=== PATIENT | male | born 1990 | race Caucasian/White ===

== ENCOUNTER 2017-06-16 17:18 | Emergency (ER) | payer SELFPAY ==
[2017-06-16 17:50] LABS: #Basophils 0.1 thou/uL (0.0-0.2); #Eosinphils 0.1 thou/uL (0.0-0.7); #Lymphocytes 2.2 thou/uL (1.20-3.40); #Monocytes 0.5 thou/uL (0.11-0.59); #Neutrophils 5.6 thou/uL (1.40-6.50); %Basophils 0.7 % (0.0-1.0); %Eosinophils 1.3 % (0.0-10.0); %Lymphocytes 25.8 % (21.0-51.0); %Neutrophils 66.2 % (42.0-75.0); Hemoglobin 16.7 g/dL (14.0-18.0); Mean Corpuscular Hemoglobin 33.9 pg (27.0-31.0); Mean Platelet Volume 7.9 fL (7.4-10.4); Platelet Count 204 thou/uL (130-400); Red Blood Cell (RBC) Count 4.93 mill/uL (4.70-6.10); White Blood Cell (WBC) Count 8.5 thou/uL (4.8-10.8)
[2017-06-16 18:14] LABS: ALT (SGPT) 21 U/L (8-55); AST (SGOT) 17 U/L (5-34); Albumin 4.9 g/dL (3.5-5.0); Alkaline Phosphatase 81 U/L (40-150); Anion Gap 14 mmol/L (10-20); BUN (Urea Nitrogen) 15 mg/dL (8.9-20.6); Bilirubin, Total 0.7 mg/dL (0.2-1.2); Calc. Creatinine Clearance 0 mL/min (70-130); Calcium 10.1 mg/dL (7.8-10.44); Carbon Dioxide 28 mmol/L (22-29); Chloride 102 mmol/L (98-107); Estimated GFR-MDRD 81; Globulin 3.6 g/dL (2.4-3.5); Glucose 117 mg/dL (70-105); Lipase 33 U/L (8-78); Potassium 3.6 mmol/L (3.5-5.1); Protein, Total 8.5 g/dL (6.0-8.3); Sodium 140 mmol/L (136-145)
[2017-06-16] MEDS ORDERED: Metoclopramide HCl 10 MG/2 ML VIAL ONE (19:04)
[2017-06-16] MEDS ORDERED: Ondansetron HCl/PF 4 MG/2 ML Vial ONE (19:04)
== END 2017-06-16 20:54 | disposition home or self-care (01) ==
LOC: ERS 17:18
DX: R10.9 Unspecified abdominal pain (principal)
CPT/HCPCS: 36415; 80053; 83690; 85025; 96361; 96374; 96375; J2405; J2765

== ENCOUNTER 2018-10-21 13:48 | Emergency (ER) | payer SELFPAY ==
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
== END 2018-10-21 14:38 | disposition home or self-care (01) ==
LOC: ERS 13:48
DX: S92.422A Displaced fracture of distal phalanx of left great toe, initial encounter for closed fracture (principal); V03.99XA Pedestrian with other conveyance injured in collision with car, pick-up truck or van, unspecified whether traffic or nontraffic accident, initial encounter
CPT/HCPCS: 70450; 72125

== ENCOUNTER 2021-06-14 14:04 | Day surgery (SDC) | payer SELFPAY ==
[~2021-06-14 14:04] MED LIST: Iopamidol 370 76% 100 ML VIAL ONE
[2021-06-14 15:49] LABS: #Eosinphils 0.1 thou/uL (0.0-0.7); #Lymphocytes 1.8 thou/uL (1.20-3.40); #Monocytes 0.8 thou/uL (0.11-0.59); #Neutrophils 9.6 thou/uL (1.40-6.50); %Eosinophils 1.1 % (0.0-10.0); %Lymphocytes 14.3 % (21.0-51.0); %Monocytes 6.6 % (0.0-10.0); Hemoglobin 16.6 g/dL (14.0-18.0); Mean Corpuscular HGB CONC 35.1 g/dL (32.0-36.0); Mean Corpuscular Hemoglobin 32.8 pg (27.0-31.0); Mean Corpuscular Volume 93.4 fL (78.0-98.0); Mean Platelet Volume 7.5 fL (7.4-10.4); Platelet Count 202 thou/uL (130-400); RBC Distribution Width 10.8 % (11.5-14.5); Red Blood Cell (RBC) Count 5.05 mill/uL (4.70-6.10); White Blood Cell (WBC) Count 12.3 thou/uL (4.8-10.8)
[2021-06-14 16:10] LABS: Anion Gap 16 mmol/L (10-20); BUN (Urea Nitrogen) 12 mg/dL (8.9-20.6); Calc. Creatinine Clearance 0 mL/min (70-130); Carbon Dioxide 26 mmol/L (22-29); Chloride 99 mmol/L (98-107); Glucose 85 mg/dL (70-105); Potassium 4.1 mmol/L (3.5-5.1); Sodium 137 mmol/L (136-145)
[2021-06-14 16:12] LABS: ALT (SGPT) 20 U/L (8-55); AST (SGOT) 21 U/L (5-34); Albumin 4.7 g/dL (3.5-5.0); Alkaline Phosphatase 82 U/L (40-110); Bilirubin, Direct Less than 0.1 mg/dL (0.1-0.3); Bilirubin, Total 0.6 mg/dL (0.2-1.2)
[2021-06-14 16:26] LABS: Bilirubin Negative (Negative); Blood, Urine Negative (Negative); Glucose, Urine (Dipstick) Normal (Negative); Ketone, Urine Negative (Negative); Leukocyte Negative Leu/uL (Negative); Nitrite Negative (Negative); Protein, Urine (Dipstick) Negative (Neg-Trace); Specific Gravity, Urine 1.015 (1.002-1.036); Urobilinogen Normal mg/dL (Less than 2); pH, Urine 7.5 (5.0-9.0)
[2021-06-14 16:29] LABS: Clarity Hazy (Clear)
[2021-06-14] MEDS ORDERED: Midazolam HCl 2 mg/2 ml Vial ONE (19:01)
[2021-06-14] MEDS ORDERED: Fentanyl 250 MCG/5 ML VIAL ONE (19:01)
[2021-06-14] MEDS ORDERED: Xylocaine 1% w/ Epi 1:100K 10 ML VIAL ONE (19:07)
[2021-06-14] MEDS ORDERED: Bupivacaine PF 0.5% 30 ML VIAL ONE (19:07)
[2021-06-14] MEDS ORDERED: Ondansetron PF 4 MG/2 ML Vial ONE ×2 (19:09→19:35)
[2021-06-14] MEDS ORDERED: Morphine 4 MG/ML VIAL ONE (19:09)
[2021-06-14] MEDS ORDERED: Piperacillin/Tazobactam 4.5 GM VIAL ONE (19:10)
[2021-06-14] MEDS ORDERED: Rocuronium Bromide 10 MG/ML (10ML VIAL) ONE (19:35)
[2021-06-14] MEDS ORDERED: Ketorolac Tromethamine 30 MG/ML VIAL ONE (19:35)
[2021-06-14] MEDS ORDERED: Dexamethasone 20 MG/5 ML VIAL ONE (19:35)
[2021-06-14] MEDS ORDERED: Glycopyrrolate 0.2 MG/ML 5 ML SYRINGE ONE (19:35)
[2021-06-14] MEDS ORDERED: Lidocaine 1% PF 5 ML VIAL ONE (19:35)
[2021-06-14] MEDS ORDERED: PROPOFOL 200 MG/20 ML VIAL ONE (19:35)
[2021-06-14 19:55] LABS: SARS-CoV-2 NAA Rapid Test Not Detected (NotDetected)
[2021-06-14] MEDS ORDERED: Meperidine HCl/PF 25 MG/ML VIAL ONE (20:30)
[2021-06-14] MEDS ORDERED: Promethazine HCl 25 MG/ML VIAL ONE (20:31)
[2021-06-14] MEDS ORDERED: HYDROcodone/Acetaminophen 5/325 mg Tablet ONE (21:37)
== END 2021-06-14 21:51 | disposition home or self-care (01) ==
LOC: ERS 14:04 → SDC/OP 19:38
PROVIDERS: ATTEND Emergency Medicine
PROC: 0DTJ4ZZ Resection of Appendix, Percutaneous Endoscopic Approach (ICD-10-PCS; principal; 2021-06-14)
DX: K35.80 Unspecified acute appendicitis (principal); F17.290 Nicotine dependence, other tobacco product, uncomplicated; Z20.822 Contact with and (suspected) exposure to COVID-19
CPT/HCPCS: 36415; 74177; 80048; 80076; 81003; 85025; 88304; 96365; 96368; 96375; A4649; J1100; J1885; J2175; J2250; J2270; J2405; J2543; J2550; J2704; J3010; Q9967; S0020; U0002

== ENCOUNTER 2021-09-06 11:18 | Emergency (ER) | payer SELFPAY ==
[2021-09-06] MEDS ORDERED: Xylocaine 1% w/ Epi 1:100K 10 ML VIAL ONE (12:19)
[2021-09-06] MEDS ORDERED: Boostrix 0.5 ML (Tdap) VIAL ONE (12:27)
== END 2021-09-06 14:07 | disposition home or self-care (01) ==
LOC: ERS 11:18
DX: S71.112A Laceration without foreign body, left thigh, initial encounter (principal); F17.290 Nicotine dependence, other tobacco product, uncomplicated; W45.8XXA Other foreign body or object entering through skin, initial encounter
CPT/HCPCS: 12002; 90471; 90715

== ENCOUNTER 2021-09-26 08:41 | Emergency (ER) | payer SELFPAY | END 2021-09-26 09:25 | disposition home or self-care (01) | LOC: ERS 08:41 | DX: Z48.02 Encounter for removal of sutures (principal); F17.290 Nicotine dependence, other tobacco product, uncomplicated ==

== ENCOUNTER 2022-01-31 18:12 | Emergency (ER) | payer SELFPAY ==
[2022-01-31] MEDS ORDERED: Ketorolac Tromethamine 30 MG/ML VIAL ONE (18:46)
== END 2022-01-31 19:01 | disposition home or self-care (01) ==
LOC: ERS 18:12
DX: M54.6 Pain in thoracic spine (principal); M54.2 Cervicalgia
CPT/HCPCS: 96372; 99283; J1885

== ENCOUNTER 2022-07-19 17:59 | Emergency (ER) | payer SELFPAY ==
[2022-07-19] MEDS ORDERED: Ondansetron PF 4 MG/2 ML Vial ONE (18:44)
[2022-07-19] MEDS ORDERED: Promethazine HCl 12.5 MG SUPP ONE (18:45)
[2022-07-19] MEDS ORDERED: Promethazine HCl 12.5 MG in Sodium Chloride 0.9% 50 ML IVPB SCH (19:00)
== END 2022-07-19 19:42 | disposition home or self-care (01) ==
LOC: ERS 17:59
DX: R11.2 Nausea with vomiting, unspecified (principal); F17.290 Nicotine dependence, other tobacco product, uncomplicated
CPT/HCPCS: 96361; 96374; J2405; J2550

== ENCOUNTER 2023-02-06 09:52 | Emergency (ER) | payer SELFPAY | END 2023-02-06 10:33 | disposition home or self-care (01) | LOC: ERS 09:52 | DX: R09.81 Nasal congestion (principal); F17.210 Nicotine dependence, cigarettes, uncomplicated | CPT/HCPCS: 99284 ==

== ENCOUNTER 2023-08-01 01:29 | Emergency (ER) | payer OTHER, SELFPAY ==
[2023-08-01] MEDS ORDERED: Ondansetron ODT 4 MG TAB ONE (02:06)
== END 2023-08-01 04:00 | disposition home or self-care (01) ==
LOC: ERS 01:29
DX: R05.9 Cough, unspecified (principal); F17.210 Nicotine dependence, cigarettes, uncomplicated; Z20.89 Contact with and (suspected) exposure to other communicable diseases
CPT/HCPCS: 71045; Q0162

== ENCOUNTER 2023-10-07 19:40 | Emergency (ER) | payer SELFPAY ==
[2023-10-07] MEDS ORDERED: Acetaminophen 500 MG TAB ONE (19:47)
== END 2023-10-07 20:24 | disposition home or self-care (01) ==
LOC: ERS 19:40
DX: S50.01XA Contusion of right elbow, initial encounter (principal); F17.210 Nicotine dependence, cigarettes, uncomplicated; W22.8XXA Striking against or struck by other objects, initial encounter

== ENCOUNTER 2024-01-27 21:27 | Emergency (ER) | payer OTHER, SELFPAY ==
[2024-01-27] MEDS ORDERED: Acetaminophen 500 MG TAB ONE (22:28)
== END 2024-01-27 23:26 | disposition home or self-care (01) ==
LOC: ERS 21:27
DX: M54.2 Cervicalgia (principal); J18.9 Pneumonia, unspecified organism; F17.210 Nicotine dependence, cigarettes, uncomplicated; V89.2XXA Person injured in unspecified motor-vehicle accident, traffic, initial encounter
CPT/HCPCS: 70450; 71045; 72125